=== PATIENT | female | born 1970 | race Caucasian/White ===

== ENCOUNTER 2019-03-17 18:12 | Emergency (ER) | payer SELFPAY ==
[~2019-03-17] VITALS: Ht 165.1 cm; Wt 61.4 kg
[2019-03-17 18:19] VITALS: Ht 165.1 cm; Wt 61.4 kg
[2019-03-17] MEDS ORDERED: FUROSEMIDE40 MG PO (18:22)
[2019-03-17] MEDS ORDERED: LISINOPRIL20 MG PO (18:22)
[2019-03-17] MEDS ORDERED: COREG6.25 MG PO (18:23)
[2019-03-17] MEDS ORDERED: ZYRTEC10 MG PO (18:23)
[2019-03-17] MEDS ORDERED: BAYER CHEWABLE81 MG PO (18:24)
[2019-03-17] MEDS ORDERED: EC-NAPROSYN500 MG PO (19:11)
[2019-03-17] MEDS ORDERED: ERYTHROMYCIN OPT1 GM RIGHT EYE (19:11)
[2019-03-17 19:45] VITALS: BP 131/84
== END 2019-03-17 19:46 | disposition home or self-care (01) ==
LOC: D.ER 18:12
DX: S46.912A Strain of unspecified muscle, fascia and tendon at shoulder and upper arm level, left arm, initial encounter (principal); S05.01XA Injury of conjunctiva and corneal abrasion without foreign body, right eye, initial encounter; I11.0 Hypertensive heart disease with heart failure; I50.9 Heart failure, unspecified; Z72.0 Tobacco use; G51.0 Bell's palsy